=== PATIENT | female | born 2000 | race Caucasian/White ===

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

== ENCOUNTER → 2022-12-16 | Outpatient (CLI) | payer OTHER | END | disposition home or self-care (01) | LOC: LAB SHORT 11:36 → LAB 11:36 | DX: R39.9 Unspecified symptoms and signs involving the genitourinary system (principal) | CPT/HCPCS: 87077; 87086; 87186 ==

== ENCOUNTER → 2024-04-15 | Outpatient (CLI) | payer OTHER | LOC: LAB 10:20 → LAB SHORT 10:20 | DX: N89.8 Other specified noninflammatory disorders of vagina (principal) | CPT/HCPCS: 87070; 87205 ==

== ENCOUNTER → 2024-11-16 | Outpatient (CLI) | payer OTHER ==
[2024-11-16 20:33] LABS: Percent Saturation 17.1 % (15.0-50.0); Thyroid Stimulating Hormone 1.78 uIU/mL (0.360-4.800)
== END ==
LOC: LAB SHORT 18:44 → LAB 18:44
PROVIDERS: Registered Nurse Community Health
DX: R53.82 Chronic fatigue, unspecified (principal)
CPT/HCPCS: 82306; 82607; 82728; 82746; 83540; 83550; 84443